=== PATIENT | male | born 1975 | race Caucasian/White ===

== ENCOUNTER 2024-11-17 14:43 | Outpatient (AMB) | payer BC, SELFPAY ==
--- NOTE | 2024-11-17 14:50 | MHC.OFFWIV ---
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 Intake Note: Patient here for questionable reva on right leg that has been there for about 1 week. Patient Tobacco Use Status: Former Tobacco user Allergies No Known Allergies Allergy (Unverified 11/17/24 14:53) Do you need a note to return to daycare/school/sports/work: No HPI HPI Comments History of Present Illness Details 49 y/o male patient who presents to the walk in clinic with c/o right lower extremity redness, swelling and pain ~ 1 week. PMhx significant for uncontrolled T2DM, and HTN. Denies SOB, CP, Wheezing, headaches or dizziness. [facility] Medical History (Updated 11/17/24 @ 15:08 by Loni Garcia NP) Cellulitis of right lower leg Social History Patient Tobacco Use Status: Former Tobacco user Review of Systems Const All systems reviewed & are unremarkable except as noted in HPI and below Physical Exam Vital Signs: Last Vital Signs Pulse 90 11/17/24 14:52 BP 140/80 H 11/17/24 14:52 Pulse Ox 96 11/17/24 14:52 Oxygen Delivery Method Room Air 11/17/24 14:52 Const General: cooperative and no acute distress Nutritional Appearance: obese morbidly obese Orientation/consciousness: patient oriented x3 Neuro General: patient oriented x3, gait normal and moves all extremities Extrem Right lower extremity: lower leg Details: erythema Location: of the mid lower leg and of the distal lower leg, tenderness and pitting edema Details: 3+; no crepitus Left lower extremity: lower leg Details: pitting edema Details: 2+; no erythema Psych Speech and movement: Normal speech and movement present Assessment & Plan Assessment & Plan (1) Cellulitis of right lower leg: Code(s): L03.115 - Cellulitis of right lower limb Plan: Ordered Abx Acetaminophen for pain relief. Medications: New cephalexin 500 mg PO BID 14 caps 0RF 7 days L03.115 - Cellulitis of right lower limb doxycycline hyclate 100 mg PO BID 20 caps 0RF 10 days L03.115 - Cellulitis of right lower limb Coding Level of Care Code New Pt Level 4 (11871) Diagnoses Cellulitis of right lower leg L03.115 Time Spent (min) 20
[2024-11-17 14:52] VITALS: BP 140/80; PULSE 90; O2SAT 96
== END 2024-11-17 15:17 | disposition home or self-care (01) ==
PROVIDERS: PCP Internal Medicine; Visit Provider Nurse Practitioner Family
DX: L03.115 Cellulitis of right lower limb (principal)

== ENCOUNTER → 2024-11-17 14:43 | Outpatient (BNVA) | payer BC, SELFPAY | PROVIDERS: PCP Internal Medicine; Visit Provider Nurse Practitioner Family ==

== ENCOUNTER 2024-11-29 10:07 | Outpatient (AMB) | payer BC, SELFPAY ==
[2024-11-29 10:08] VITALS: BP 128/68; PULSE 98; RESP 16; TEMP 36.6; O2SAT 95; BMI 43.7
--- NOTE | 2024-11-29 10:08 | MHC.OFFWIV ---
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 Intake Note: Pt is here today c/o Rt lower leg cellulitis not getting better and he finished a course of abx's Patient Tobacco Use Status: Former Tobacco user Allergies No Known Allergies Allergy (Unverified 11/29/24 10:40) Medication List - Last Reconciled 11/29/24 by Liz Gutiérrez, MATERIAL COORDINATOR- amlodipine 10 mg PO DAILY eplerenone 50 mg PO DAILY insulin aspart U-100 (Novolog U-100 Insulin aspart) subcut insulin detemir U-100 units subcut lisinopril 40 mg PO DAILY metoprolol succinate ER 100 mg PO DAILY torsemide 40 mg PO BID HPI HPI Comments History of Present Illness Details History - The patient is a 49-year-old male presenting with cellulitis of the right lower extremity. - Was previously treated with antibiotics, including a 7-day course of cephalexin and a 10-day course of doxycycline, with initial improvement noted, but ultimately incomplete resolution. Walk in visit 11/17/24, note reviewed. - Onset began as erythema of the right lower leg, progressed to blistering, and currently exhibits drainage. - The patient denies systemic symptoms such as fever or chills, which are important to rule out complications. - Type 2 Diabetes Mellitus noted as relevant past medical history, management is conducted by the patient's primary care provider, with current diabetic control described as middle. last A1c 9% - Similar infections have occurred previously, requiring IV antibiotic treatment. He does not feel this is the case right now as the pain has improved. Physical Exam General: Awake, alert. No apparent distress RLE: + DP, unable to palpate PP d/t edema, + 1 edema, skin warm but not hot; unable to express drainage w/ light pressure. Skin is hairless. See picture. Discussion Notes I discussed with the patient that the cellulitis in his right lower extremity had not fully resolved despite the prior course of antibiotics. I emphasized the importance of additional antibiotic therapy and proper wound care. I recommended warm, moist compresses several times daily to facilitate drainage and healing. Given the patient's diabetes and the risk of compromised circulation, I strongly advised follow-up with primary care for potential vascular evaluation. I also recommended a tetanus vaccination due to the skin break. It was advised that he should seek immediate care if he develops systemic symptoms such as fever or chills. Assessment and Plan 1. Cellulitis of the right lower extremity: The patient's cellulitis showed some improvement with prior antibiotics but remains unresolved. We will initiate a course of linezolid for 10 days, addressing both gram-positive bacteria typically involved in skin infections. Warm compresses are advised to encourage resolution of the infection. Do not pick at or try to manual express anything from this area. Given the patient's diabetes, which can complicate recovery, following up with his primary care provider is crucial for potential vascular evaluation. I made sure he understood the importance of this and risks for not following up. 2. Type 2 Diabetes Mellitus: The patient's diabetes management is not optimal and may be a factor in delayed healing. Encouraged to follow up with his primary physician for more comprehensive management PÉREZ, advised to call office on Sunday. 3. Risk of Tetanus: Administered tetanus prophylaxis due to skin break, as the patient was unsure of his vaccination history. Patient Instructions - Take prescribed linezolid twice daily for 10 days. - Apply warm, moist compresses to the affected area two to three times daily. - Ensure compress is not too hot before application. - Follow up with your primary care provider for diabetes management and potential vascular evaluation. - Seek immediate medical attention if you develop a fever, chills, or if the affected area becomes significantly worse or more swollen. - You will receive a tetanus shot during this visit. - Call PCP on Sunday; recommend close clinical re-eval in a few days, ok to come back here if unable to see PCP Consent Patient was informed and verbally consented to the use of an ambient scribe for clinic note documentation during this visit. Total time spent caring for the patient today was 30 minutes. This includes time spent before the visit reviewing the chart, time spent during the visit, and time spent after the visit on documentation, reviewing laboratory results, diagnostic imaging, medications, performing a medically necessary evaluation, counseling on diagnoses, care coordination, ordering appropriate tests, ordering appropriate medications, review of tests performed by other providers, reporting test results with the patient, communication with other healthcare providers. [facility] Medical History (Updated 11/29/24 @ 10:50 by LEE ANN Martinez) Cellulitis of right lower leg Social History Patient Tobacco Use Status: Former Tobacco user Physical Exam Vital Signs: Last Vital Signs Temp 97.9 F 11/29/24 10:08 Pulse 98 11/29/24 10:08 Resp 16 11/29/24 10:08 BP 128/68 11/29/24 10:08 Pulse Ox 95 11/29/24 10:08 Oxygen Delivery Method Room Air 11/29/24 10:08 BMI result Body Mass Index 43.7 Immunizations Boostrix Tdap 2.5 Lf unit-8 mcg-5 Lf/0.5 mL intramuscular syringe Performing Provider: LEE ANN Martinez Performing Location: [facility] [place] [facility] Administered by: Devi Machuca CMA on 11/29/24 11:10 Dose Route Admin Location Dispensed Lot Number Expiration Date [facility] Erp Programmer 0.5 mL IM Left Deltoid 0.5 mL [id number] 12/20/26 33799-586-17 Certus VIS Given Date VIS Provided VIS Publication Date 11/29/24 Single Vaccine 21 Eligibility Eligibility Date Funding Source Not [facility] Eligible 11/29/24 Private Assessment & Plan Assessment & Plan (1) Cellulitis of right lower leg: Code(s): L03.115 - Cellulitis of right lower limb (2) Diabetes mellitus type 2 with complications: Code(s): E11.8 - Type 2 diabetes mellitus with unspecified complications (3) PVD (peripheral vascular disease): Code(s): I73.9 - Peripheral vascular disease, unspecified (4) Need for Tdap vaccination: Code(s): Z23 - Encounter for immunization Plan . Orders: Orders TDaP Immunization Today Z23 - Encounter for immunization Medications: New linezolid 600 mg PO Q12H 20 tabs 0RF 10 days Patient Instructions: Patient Instructions - Take prescribed linezolid twice daily for 10 days. - Apply warm, moist compresses to the affected area two to three times daily. - Ensure compress is not too hot before application. - Follow up with your primary care provider for diabetes management and potential vascular evaluation. - Seek immediate medical attention if you develop a fever, chills, or if the affected area becomes significantly worse or more swollen. - You will receive a tetanus shot during this visit. - Call PCP on Sunday; recommend close clinical re-eval in a few days, ok to come back here if unable to see PCP Coding Level of Care Code Est Pt Level 4 (92475) Diagnoses Cellulitis of right lower leg L03.115 Diabetes mellitus type 2 with complications E11.8 PVD (peripheral vascular disease) I73.9 Need for Tdap vaccination Z23
== END 2024-11-29 11:25 | disposition home or self-care (01) ==
LOC: HO.HMCWIC 10:07
PROVIDERS: PCP Internal Medicine; Visit Provider Nurse Practitioner Family
DX: L03.115 Cellulitis of right lower limb (principal); E11.8 Type 2 diabetes mellitus with unspecified complications; I73.9 Peripheral vascular disease, unspecified; Z23 Encounter for immunization

== ENCOUNTER → 2024-11-29 10:07 | Outpatient (BNVA) | payer BC, SELFPAY | PROVIDERS: PCP Internal Medicine; Visit Provider Nurse Practitioner Family | DX: L03.115 Cellulitis of right lower limb (principal); E11.8 Type 2 diabetes mellitus with unspecified complications; I73.9 Peripheral vascular disease, unspecified; Z23 Encounter for immunization | CPT/HCPCS: 90471; 90715 ==

== ENCOUNTER 2025-01-19 14:23 | Outpatient (AMB) | payer BC, SELFPAY ==
--- OUTSIDE RECORDS SUMMARY | 2025-01-19 14:31 | XMS_ITS ---
Author Name [facility] Organization Unknown Encounters Encounter Type Encounter Reason Primary Diagnosis Location Date Ambulatory Counts include 234 beds at the [facility] 2024 Care Team Organization Name Specialty Phone Email Start Date End Da te Counts include 234 beds at the [facility] 2024
[2025-01-19 15:09] VITALS: BP 130/78; PULSE 68; TEMP 36.8; O2SAT 98
--- NOTE | 2025-01-19 15:09 | MHC.OFFWIV ---
Intake Vital Signs 01/19/25 15:09 Weight 332 lb BP 130/78 Blood Pressure Location Lt brachial Position Sitting Pulse 68 Pulse Source Pulse Oximeter Temp 98.3 F Temp Source Oral Pulse Oximetry (%) 98 Oxygen Delivery Method Room Air Intake Visit Reasons: EP-rt leg wound Intake Note: Patient here for right leg wound that has not gotten better since november. Patient Tobacco Use Status: Former Tobacco user Allergies No Known Allergies Allergy (Unverified 01/19/25 15:18) Do you need a note to return to daycare/school/sports/work: No HPI HPI Comments History of Present Illness Details 49 y/o Male patient who presents to the clinic with c/o Recurrent cellulitis of the right lower extremity. He was first seen by me 11/17 for similar concern - he was prescribed antibiotics, including a 7-day course of cephalexin and a 10-day course of doxycycline, with initial improvement noted, but ultimately incomplete resolution. He was seen again 11/29 - he was prescribed Linezolid 600 mg Q12h for 10 days, with initial improvement, but ultimately infection returned ~ 3 days ago. Reports erythema of the right lower leg, that progressed to blistering, and currently exhibiting yellow drainage. Type 2 Diabetes Mellitus noted as relevant past medical history, managed by Dr. Rhodes, currently sub-optimal with Mounjaro, Lantus and Novolog, A1C 9%. Reports Similar infections have occurred previously, requiring IV antibiotic treatment. He is currently waiting to be referred to Wound Care by PCP. [facility] Medical History (Updated 11/29/24 @ 10:50 by Liz Gutiérrez, [facility]-) Cellulitis of right lower leg Social History Patient Tobacco Use Status: Former Tobacco user Review of Systems Const All systems reviewed & are unremarkable except as noted in HPI and below Physical Exam Vital Signs: Last Vital Signs Temp 98.3 F 01/19/25 15:09 Pulse 68 01/19/25 15:09 BP 130/78 01/19/25 15:09 Pulse Ox 98 01/19/25 15:09 Oxygen Delivery Method Room Air 01/19/25 15:09 Const General: no acute distress Nutritional Appearance: obese morbidly obese Orientation/consciousness: patient oriented x3 Resp Effort & Inspection: normal respiratory effort Cardio Heart sounds: S1 normal heart sound present and S2 normal heart sound present Neuro General: patient oriented x3, gait normal and moves all extremities Extrem Right lower extremity: lower leg Details: erythema, tenderness and non-pitting edema Ankle/foot/toe images: 1. Open Wound with yellow fluid draining, erythematous Assessment & Plan Assessment & Plan (1) Cellulitis of right lower leg: Code(s): L03.115 - Cellulitis of right lower limb Plan: Ordered Linezolid for 14 days. Advised Pt that he might need a Hospital admission for IV Abx and wound culture by ID. Advised the importance of contacting PCP for close monitoring Work on controlling T2DM. Plan Dressed the wound with Patient provided dressing Gauze MANUKA HONEY GAUZE . Medications: New alginate dressing APPLY THE DRESSING PAD TO THE AFFECTED AREA. 10 ea 0RF wound L03.115 - Cellulitis of right lower limb Changed From linezolid 600 mg PO Q12H 10 days 20 tabs 0RF To linezolid 600 mg PO Q12H 14 days 28 tabs 0RF Coding Level of Care Code Est Pt Level 4 (19513) Diagnoses Cellulitis of right lower leg L03.115 Time Spent (min) 20
== END 2025-01-19 15:53 | disposition home or self-care (01) ==
PROVIDERS: PCP Internal Medicine; Visit Provider Nurse Practitioner Family
DX: L03.115 Cellulitis of right lower limb (principal)

== ENCOUNTER → 2025-01-19 14:23 | Outpatient (BNVA) | payer BC, SELFPAY | PROVIDERS: PCP Internal Medicine; Visit Provider Nurse Practitioner Family | DX: Z13.89 Encounter for screening for other disorder (principal) ==